=== PATIENT | female | born 1990 | race Caucasian/White ===

== ENCOUNTER → 2017-09-07 | Outpatient (CLI) | payer OTHER ==
[~2017-09-07] MED LIST: ALBU1AER9 INH; EPP3/2 IM; FLVHFA110 INH; LEVO150T9 PO; LISI-729 PO; MAGN400T6 PO; ONDA4TAB7 SL; PROP1TAB PO; RANI150T85 PO; RIBO1TAB4 PO; TOPI100T20 PO; TRAN1TAB47 PO; [UNRECOGNIZED DRUG - OTHER]
--- NOTE | 2017-09-07 12:23 | DIAGNOSTIC IMAGING REPORT ---
C-SPINE ROUTINE 4 OR 5 VIEWS CLINICAL HISTORY: CERVICALGIA COMPARISON STUDY: No previous studies for comparison. FINDINGS: The prevertebral soft tissues are normal. No fractures or subluxations are visualized. The bony neural foramina appear patent bilaterally. No destructive lesions are visualized. IMPRESSION: No significant bony abnormalities. Electronically signed by: Mariano Dias M.D. 09/07/2017 12:22 PM Dictated Date/Time: 09/07/2017 12:21 PM
== END | disposition home or self-care (01) ==
LOC: C.RADBC 11:54
PROVIDERS: ATTEND Physician Assistant
DX: M54.2 Cervicalgia (principal)

== ENCOUNTER 2024-12-09 18:24 | Observation (INO) ==
[2024-12-09 19:40] LABS: Hematocrit (blood only) 41.1 % (37.0-47.0); Hemoglobin 13.6 g/dl (12.0-16.0); Immature Granulocytes # (auto) 0.02 K/uL (0.01-0.20); Immature Granulocytes % (auto) 0.3 %; Mean Corpuscular Hemoglobin 32.5 pg (25.0-34.0); Mean Corpuscular Volume 98.3 fL (80.0-100.0); Platelet Count 233 K/uL (130-400); RDW Standard Deviation 44.2 fL (36.4-46.3); Red Blood Count 4.18 M/uL (4.20-5.40); White Blood Count 7.97 K/ul (4.8-10.8)
[2024-12-09 19:42] LABS: Appearance Urine Clear (Clear); Bacteria Urine Automated 1+ (None Seen); Cast Urine Automated 0-2 /lpf (0-2); Epithelial Cell Urine Auto 0-2 /hpf (0-2); Glucose Urine UA Negative (Negative); RBC Urine Automated 0-2 /hpf (0-2); WBC Urine Automated 0-5 /hpf (0-5)
[2024-12-09 19:56] LABS: Pregnancy Test, Serum Negative (Negative)
[2024-12-09 19:59] LABS: Alanine Aminotransferase 13.0 U/L (7-52); Albumin Globulin Ratio 1.7 (0.9-2); Alkaline Phosphatase 58.0 U/L (34-104); Anion Gap 6.0 (3-11); Bilirubin,Total 0.3 mg/dl (0.2-1.0); Blood Urea Nitrogen 10.0 mg/dl (6-23); Calcium 9.2 mg/dl (8.6-10.3); Carbon Dioxide 29.0 mmol/L (21-32); Chloride 105.0 mmol/L (98-107); Creatinine Clr Calc Pharmacy 108.9 ml/min; Globulin 2.7 gm/dl (2.5-4.0); Glucose 93.0 mg/dl (70-99(Fasting)); Lipase 21.0 U/L (11-82); Potassium 3.8 mmol/L (3.5-5.1); Sodium 140.0 mmol/L (136-145); Total Protein 7.2 gm/dl (6.0-8.3)
--- NOTE | 2024-12-09 20:04 | Emergency Department Note ---
Impression & Plan Peptic ulcer disease, Acute gastritis, Epigastric abdominal pain ED Provider Note NAME: SIERRA WRIGHT AGE: 34 SEX: F : 1990 ARRIVES VIA: Walk-In INFORMANT: Patient, ED PROVIDER(S): Hammad Batista DO CHIEF COMPLAINT: Abdominal pain HPI: The patient is a 34-year-old female who presented to the emergency department for an evaluation of abdominal pain. The patient's had abdominal pain over the last few days. She was seen in our facility recently for similar complaints. That time she had complete workup which revealed signs of gastritis. She was offered admission but at that time did not wish to stay in the hospital. She returns today with worsening pain. She denies having any rectal bleeding. ROS: See above HPI for pertinent positives & negatives. A total of 10 systems reviewed and were otherwise negative. PAST MEDICAL HISTORY: See Below PAST SURGICAL HISTORY: See Below FAMILY HISTORY: See Below SOCIAL HISTORY: See Below HOME MEDICATIONS: See Below ALLERGIES: See Below VITALS: See Below PHYSICAL EXAMINATION: GENERAL: Patient is awake alert in no acute distress patient is resting comfortably and showing no signs of anxiety EYES: The conjunctivae are clear. The pupils are round and reactive. EARS, NOSE, MOUTH AND THROAT: The nose is without any evidence of any deformity. NECK: The neck is nontender and supple. RESPIRATORY: Normal respiratory effort is noted there is no evidence of wheezing rhonchi or rales CARDIOVASCULAR: Regular rate and rhythm noted there no murmurs rubs or gallops normal S1 normal S2. GASTROINTESTINAL: The abdomen is soft. Abdomen is nontender. MUSCULOSKELETAL/EXTREMITIES: There is no evidence of gross deformity full range of motion is noted in the hips and shoulders. SKIN: There is no obvious evidence of any rash. There are no petechiae, pallor or cyanosis noted. NEUROLOGIC: Patient is awake alert and oriented x3 MEDICAL DECISION MAKING: The patient is a 34-year-old female who presented to the emergency department for epigastric pain. The patient's had ongoing symptoms over the course the last few days. She was seen in our facility last evening. The patient was diagnosed with the possibility of ulcer disease. The patient did not wish to stay in the hospital at that time. She left our facility and was started on medications. She returns tonight because of worsening symptoms. I discussed the patient's laboratory and radiographic studies with her. There is no signs of free air on x-ray. She was not feeling much better and was requesting evaluation by the hospitalist for possible inpatient management. I discussed her condition with the on-call [facility] hospitalist. Triage Nursing notes reviewed. Prior medical records reviewed Vital Signs: reviewed and remarkable for no significant abnormalities Differential diagnosis: Etiologies such as appendicitis, diverticulitis, obstruction, inflammatory bowel disease, renal colic, PUD, biliary pathology, pancreatitis, mesenteric ischemia, aortic pathology, infections, genitourinary, UTI, perforated viscus, as well as others were entertained. ER treatment provided: See below Diagnostics interpreted by me: ECG: none Cardiac Monitoring: An order was placed for continuous cardiac monitoring. The monitor shows a rate of 82 bpm with sinus rhythm. Laboratory studies: As stated above and show below. Imaging studies: See below. Radiographic imaging was reviewed by myself Consultation(s): I discussed this case with Dr. Boothe [facility] Past Med/Surg History Problem List (Updated 12/09/24 @ 21:46 by Hammad Batista DO) Epigastric abdominal pain (Acute) Peptic ulcer disease (Acute) Epigastric abdominal pain (Acute) Chest pain (Acute) Gastric ulcer (Acute) Encounter for pre-operative examination Chest pain (Acute) Nausea (Acute) Abdominal pain (Acute) Abdominal pain (Acute) Abdominal pain (Acute) Acute gastritis (Acute) Encounter for pre-operative examination Heavy menstrual bleeding Rectal bleeding Von Willebrand disease (Chronic) Chronic hypertension in (Acute 03/19/14) GERD (gastroesophageal reflux disease) (Acute) Chronic migraine (Chronic) Cervicalgia (Chronic) Medical History Dysmenorrhea Morbid obesity BMI 44.6 Acid reflux CONTROLLED Hypothyroidism History of migraine Von Willebrand disease DX 2/2 RECURRENT EPITAXIS/MENORRHAGIA Seasonal asthma Hypertension Surgical History History of colonoscopy (~01/2020) History of esophagogastroduodenoscopy (EGD) History of total hysterectomy with bilateral salpingo-oophorectomy (BSO) (~05/2018) laparoscopic History of tubal ligation History of wisdom tooth extraction History of total adrenalectomy LEFT (BENIGN TUMOR) History of ankle surgery LEFT/NO HARDWARE History of tonsillectomy Family History Grandmother (Maternal) Family history of colon cancer Mother Family hx colonic polyps Other No family history of adverse response to anesthesia Social History Smoking Status: Never smoker Second Hand Exposure: Yes (father smoked); Do You Dip or Chew Tobacco: No; Hx Alcohol Use: No Hx Substance Use: No Preferred Language: Israeli Communication Ability: Effective Visual Impairment: No 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: No Beliefs That Will Affect Care: None Current Living Situation: Family and Significant Other Current Living Situation Comment: Lives with fiance and 2 kids Feels Safe at Home: Yes Assistive Devices: Glasses Allergies Allergies Allergy/AdvReac Type Severity Reaction Status Date / Time bee venom protein (honey bee) Allergy Severe SHORTNESS Verified 01/15/21 10:21 OF BREATH Penicillins Allergy Severe GASPS AND Verified 01/15/21 10:21 HIVES [id number] Antimigraine Allergy Severe throat Verified 01/15/21 10:21 Agents swelling red dye Allergy Intermediate HIVES Verified 01/15/21 10:21 tramadol Allergy Intermediate GI Verified 01/15/21 10:21 SYMPTOMS, "PASSED OUT" Cephalosporins Allergy Unknown UNKNOWN Verified 01/15/21 10:21 ketorolac AdvReac Mild VOMITING Verified 01/15/21 10:21 Home Meds Home Medications Medication Instructions Recorded Confirmed albuterol sulfate 90 mcg/actuation 2 puffs inhalation Q6H PRN 01/12/18 02/11/23 aerosol inhaler SEASONAL ASTHMA epinephrine 0.3 mg/0.3 mL 0.3 mg IM ONCE PRN Allergic 01/12/18 02/11/23 injection, auto-injector (EpiPen) Reaction levothyroxine 150 mcg capsule 150 mcg PO QAM 01/12/18 02/11/23 omeprazole 20 mg capsule,delayed 40 mg PO DAILY 01/15/21 02/11/23 release Vitamin D 1 cap PO PM 02/11/23 02/11/23 calcium citrate 6 tabs PO .2 TABS @AM,PM,HS 02/11/23 02/11/23 cyanocobalamin (vitamin B-12) 1 tab PO HS 02/11/23 02/11/23 cyanocobalamin (vitamin B-12) 1,000 mcg subcut DIRECTED 02/11/23 02/11/23 1,000 mcg/mL injection solution galcanezumab-gnlm 120 mg/mL 120 mg subcut DIRECTED 02/11/23 02/11/23 subcutaneous pen injector (Emgality Pen) lamotrigine 100 mg tablet 100 mg PO QAM 02/11/23 02/11/23 nystatin 100,000 unit/gram topical 1 applic topical BID 02/11/23 02/11/23 powder (Nystop) ondansetron 8 mg disintegrating 8 mg PO DIRECTED PRN 02/11/23 02/11/23 tablet NAUSEA/VOMITING pediatric multivitamin no.136 1 tab PO AMPM 02/11/23 02/11/23 (Children Multivitamin chewable tablet) zinc 1 tab PO HS 02/11/23 02/11/23 Previous Rx's Medication Instructions Recorded pantoprazole 40 mg tablet,delayed 40 mg PO BID 30 days #60 tabs 12/08/24 release Results & Data (ED) Vital Signs Vital Signs - 24 hr 12/09/24 18:25 12/09/24 20:39 12/09/24 20:49 Temperature 36.6 C Temperature Source Temporal Artery Scan Pulse Rate 94 H 61 Pulse Rate [Apical] 60 Respiratory Rate 18 18 Blood Pressure 154/92 H Blood Pressure [Left Arm] 123/81 Blood Pressure Mean 112 Blood Pressure Mean [Left Arm] 95 Pulse Oximetry 99 98 Oxygen Delivery Method Room Air Sepsis Recent Fever Within 48 Hours No Sepsis New/Unexplained Change in Mental Status N/A Sepsis Action Taken by Nursing No Action Required Home Medications Current Medication List: was personally reviewed by me Laboratory Data Attestation: I reviewed the patient's lab results. 12/09/24 19:26 12/09/24 19:26 Lab Results 12/09/24 Range/Units 19:26 WBC 7.97 (4.8-10.8) K/ul RBC 4.18 L (4.20-5.40) M/uL Hgb 13.6 (12.0-16.0) g/dl Hct 41.1 (37.0-47.0) % MCV 98.3 (80.0-100.0) fL MCH 32.5 (25.0-34.0) pg MCHC 33.1 (32.0-36.0) g/dL RDW Std Deviation 44.2 (36.4-46.3) fL RDW Coeff of Christa 12.2 (11.5-14.5) % Plt Count 233 (130-400) K/uL MPV 11.8 (9.4-12.4) fL Immature Gran % (Auto) 0.3 % Neut % (Auto) 62.9 % Lymph % (Auto) 26.7 % [place] % (Auto) 7.4 % Eos % (Auto) 1.9 % Baso % (Auto) 0.8 % Neut # (Auto) 5.02 (1.40-6.50) K/uL Lymph # (Auto) 2.13 (1.20-3.40) K/uL [place] # (Auto) 0.59 (0.11-0.59) K/uL Eos # (Auto) 0.15 (0.00-0.50) K/uL Baso # (Auto) 0.06 (0.00-0.20) K/uL Immature Gran # (Auto) 0.02 (0.01-0.20) K/uL Sodium 140 (136-145) mmol/L Potassium 3.8 (3.5-5.1) mmol/L Chloride 105 (98-107) mmol/L Carbon Dioxide 29 (21-32) mmol/L Anion Gap 6 (3-11) BUN 10 (6-23) mg/dl Creatinine 0.70 (0.6-1.2) mg/dl Est Cr Clr Drug Dosing 108.9 ml/min eGFR 117.04 BUN/Creatinine Ratio 14.3 (10-20) Glucose 93 (70-99(Fasting)) mg/dl Calcium 9.2 (8.6-10.3) mg/dl Total Bilirubin 0.3 (0.2-1.0) mg/dl AST 15 (13-39) U/L ALT 13 (7-52) U/L Alkaline Phosphatase 58 (34-104) U/L Total Protein 7.2 (6.0-8.3) gm/dl Albumin 4.5 (3.4-5.0) gm/dl Globulin 2.7 (2.5-4.0) gm/dl Albumin/Globulin Ratio 1.7 (0.9-2) Lipase 21 (11-82) U/L HCG, Qual Negative (Negative) Urine Color Yellow Urine Appearance Clear (Clear) Urine pH 5.5 (4.5-7.5) Ur Specific [place] 1.017 (1.000-1.030) Urine Protein Negative (Negative) Urine Glucose (UA) Negative (Negative) Urine Ketones Negative (Negative) Urine Blood Negative (Negative) Urine Nitrite Negative (Negative) Urine Bilirubin Negative (Negative) Urine Urobilinogen Negative (Negative) Ur Leukocyte Esterase Trace H (Negative) Urine WBC (Auto) 0-5 (0-5) /hpf Urine RBC (Auto) 0-2 (0-2) /hpf U Hyaline Cast (Auto) 0-2 (0-2) /lpf U Epithel Cells (Auto) 0-2 (0-2) /hpf Urine Bacteria (Auto) 1+ H (None Seen) Urine Comment Administered Medications Discontinued Medications Sodium Chloride (Nss) 1,000 mls @ 999 mls/hr IV .Q1H1M ONE Stop: 12/09/24 21:04 Last Admin: 12/09/24 20:34 Dose: 999 mls/hr Documented By: KRISTINA Ondansetron HCl (Ondansetron Inj 2 Mg/Ml 2 Ml Vial) 4 mg IV NOW STA Stop: 12/09/24 20:05 Last Admin: 12/09/24 20:34 Dose: 4 mg Documented By: KRISTINA Imaging Data Attestation: I personally reviewed and interpreted this imaging study as follows: My Impression: 1 view chest x-ray was obtained in the emergency department. My interpretation is no free air or definite infiltrate, final report below. Radiologist's Impression: Chest X-Ray 12/09/24 20:00 Exam(s): XR CXR 1 VIEW EXAM: XR Chest, 1 View CLINICAL HISTORY: Reason for exam: epigastric pain. TECHNIQUE: Frontal view of the chest. COMPARISON: No relevant prior studies available. FINDINGS: Lungs: Unremarkable. No consolidation. Pleural space: Unremarkable. No pneumothorax. Heart: Unremarkable. No cardiomegaly. Mediastinum: Unremarkable. Normal mediastinal contour. Bones/joints: Unremarkable. No acute fracture. IMPRESSION: Normal chest x-ray. Electronically signed by: Amador Swain MD 12/09/24 21:29 PM KUB X-Ray 12/09/24 20:00 Exam(s): XR KUB EXAM: XR Abdomen, 1 View CLINICAL HISTORY: Reason for exam: epigastric pain. TECHNIQUE: Frontal supine view of the abdomen/pelvis. COMPARISON: No relevant prior studies available. FINDINGS: Gastrointestinal tract: Unremarkable. No dilation. Right upper quadrant surgical clips likely representing prior cholecystectomy. Bones/joints: Unremarkable. No acute fracture. IMPRESSION: Normal abdominal x-ray. Electronically signed by: Amador Swain MD 12/09/24 21:09 PM Discharge Plan Visit Data Chief Complaint: Abdominal Pain Stated Complaint: STOMACH ULCER PAIN ED Provider: Hammad Batista Discharge Problem: Peptic ulcer disease, Acute gastritis, Epigastric abdominal pain Patient Disposition: Being Evaluated by Hospitalist Condition: Fair Forms Stand Alone Forms: [facility] [place] [employer] Prescriptions Prescriptions: No Action albuterol sulfate 90 mcg/actuation HFA aerosol inhaler 2 puffs INH Q6H PRN (Reason: SEASONAL ASTHMA) epinephrine [EpiPen] 0.3 mg/0.3 mL auto-injector 0.3 mg IM ONCE PRN (Reason: Allergic Reaction) levothyroxine 150 mcg capsule 150 mcg PO QAM ondansetron 8 mg tablet,disintegrating 8 mg PO DIRECTED PRN (Reason: NAUSEA/VOMITING) cyanocobalamin (vitamin B-12) 1,000 mcg/mL solution 1,000 mcg subcut DIRECTED nystatin [Nystop] 100,000 unit/gram powder 1 applic TOPICAL BID lamotrigine 100 mg tablet 100 mg PO QAM Children Multivitamin Tablet,Chewable 1 tab PO AMPM Emgality Pen 120 mg/mL pen injector 120 mg SUBCUT DIRECTED Patient Comments: hasnt started medication yet Vitamin D 1 cap PO PM Rx Instructions: pt didnt give dose calcium citrate 6 tabs PO .2 TABS @AM,PM,HS cyanocobalamin (vitamin B-12) 1 tab PO HS Rx Instructions: pt didnt give dose zinc 1 tab PO HS Rx Instructions: pt didnt give dose omeprazole 20 mg Capsule,Delayed Release(Dr/Ec) 40 mg PO DAILY pantoprazole 40 mg tablet,delayed release (DR/EC) 40 mg PO BID 30 Days Qty: 60 0RF Referrals Referrals: Ezekiel Flores MD [Primary Care Provider] -
[2024-12-09] MEDS: SODIUM CHLORIDE 0.9% 1,000 ML IV ONE (20:34)
[2024-12-09] MEDS: ONDANSETRON INJ 2 MG/ML 2 ML VIAL IV STA ×2 (20:34→21:55)
--- NOTE | 2024-12-09 21:10 | XRay Report ---
Exam(s): XR KUB EXAM: XR Abdomen, 1 View CLINICAL HISTORY: Reason for exam: epigastric pain. TECHNIQUE: Frontal supine view of the abdomen/pelvis. COMPARISON: No relevant prior studies available. FINDINGS: Gastrointestinal tract: Unremarkable. No dilation. Right upper quadrant surgical clips likely representing prior cholecystectomy. Bones/joints: Unremarkable. No acute fracture. IMPRESSION: Normal abdominal x-ray. Electronically signed by: Amador Swain MD 12/09/24 21:09 PM
--- NOTE | 2024-12-09 21:30 | XRay Report ---
Exam(s): XR CXR 1 VIEW EXAM: XR Chest, 1 View CLINICAL HISTORY: Reason for exam: epigastric pain. TECHNIQUE: Frontal view of the chest. COMPARISON: No relevant prior studies available. FINDINGS: Lungs: Unremarkable. No consolidation. Pleural space: Unremarkable. No pneumothorax. Heart: Unremarkable. No cardiomegaly. Mediastinum: Unremarkable. Normal mediastinal contour. Bones/joints: Unremarkable. No acute fracture. IMPRESSION: Normal chest x-ray. Electronically signed by: Amador Swain MD 12/09/24 21:29 PM
[2024-12-09] MEDS: MoRPHine SULFATE 4 MG/ML 1 ML CARP\\VIAL IV STA (21:55)
[2024-12-09] MEDS: FAMOTIDINE 20MG IV PUSH 20 MG/5 ML SYR IV STA (21:55)
[2024-12-09] MEDS: PANTOprazole 40 MG/10 ML SYR IV ONE (21:55)
[2024-12-09] MEDS ORDERED: MoRPHine SULFATE 2 MG/ML CARP IV PRN (22:18)
[2024-12-09] MEDS ORDERED: POLYETHYLENE (MIRALAX) 17 GM PACK PO PRN (22:50)
[2024-12-09] MEDS ORDERED: ACETAMINOPHEN 325 MG TAB PO PRN (22:50)
[2024-12-09] MEDS: PROMETHAZINE 12.5 MG/50.5 ML BAG IV PRN (23:51)
--- NOTE | 2024-12-10 00:18 | History & Physical Report ---
Date of Service December 09, 2024 Assessment & Plan (1) Peptic ulcer disease: Plan: -from 12/08/2024 CT abdomen/pelvis: Mild gastric antral mural thickening, with a small air locule seen within its anterior wall, is suspicious for a small gastric ulcer. -patient with same symptoms as prior -hx of gastric bypass -other considerations would be pancreatitis (negative lipase), worsening perforation (possible but no peritonitis on exam), (HCG negative), int estinal ischemia (unlikely, normal labs), LFTS unremarkable making cholangitis less likely Plan: -GI consult, appreciate recs (consult placed) -continue protonix PO bid -NPO after midnight except meds for likely EGD -oxycodone, morphine for pain control -avoid NSAIDS -patient requested phenergan for nausea/vomiting -check iron, folic acid, B12 -contact centre supervisor consult, appreciate recs (consult placed) -LR maintenance fluids until seen in AM by GI (2) GERD (gastroesophageal reflux disease): Plan: -see above (3) Bipolar 2 disorder: Plan: -continue lamotrigine, lithium -AM lithium level ordered (4) Borderline personality disorder: Plan: -see above Plan I spent a total of 70 minutes in direct patient care, including [id number] time with the patient and/or family, reviewing medical records, ordering and reviewing diagnostic tests, and coordinating care with other healthcare providers. This time includes: history taking, physical examination, medical decision making, counseling, ECG interpretation, imaging interpretation, lab interpretation, orders, and education, excluding time spent in the performance of separately billed services. History of Present Illness Chief Complaint: -abdominal pain Primary Care Provider: Ezekiel Flores MD 34 yo female with pmhx of hypothyroiism, GERD, s/p gastric bypass, borderline personality disorder (on lithium, lamotrigine), hx of anorexia nervosa who presents for abdominal pain. Had visit to ED yesterday, peptic ulcer noted on imaging, went home but was told to come back if pain worsened, and she states the pain is unbearable at this time. In the ED, xr chest/KUB unremarkable, labs unremarkable, admitted to medicine for further workup. Patient seen and examined at bedside. Patient doing poorly at this time. States the pain when she left yesterday was severe and has not gotten any better. Has had nausea, and unable to keep anything down. Has also been passing out at home a few times over the past few days. States nothing makes this better or worse. Pain is sharp, worse with eating, in center of abdomen and down to umbilicus. Does not use ibuprofen, has been using a lot of tums recently. Has hx of gastric bypass. No tobacco use, no alcohol use, no drug use, full code. Allergies Allergy/AdvReac Type Severity Reaction Status Date / Time bee venom protein (honey bee) Allergy Severe SHORTNESS Verified 12/09/24 22:35 OF BREATH Penicillins Allergy Severe GASPS AND Verified 12/09/24 22:35 HIVES [id number] Antimigraine Allergy Severe throat Verified 12/09/24 22:35 Agents swelling red dye Allergy Intermediate HIVES Verified 12/09/24 22:35 tramadol Allergy Intermediate GI Verified 12/09/24 22:35 SYMPTOMS, "PASSED OUT" Cephalosporins Allergy Unknown UNKNOWN Verified 12/09/24 22:35 ketorolac AdvReac Mild VOMITING Verified 12/09/24 22:35 Home Medications Medication Instructions Recorded Confirmed Type epinephrine 0.3 mg/0.3 mL 0.3 mg IM ONCE PRN Allergic 01/12/18 12/09/24 History injection, auto-injector (EpiPen) Reaction levothyroxine 150 mcg capsule 150 mcg PO DAILYBB 01/12/18 12/09/24 History cyanocobalamin (vitamin B-12) 1,000 mcg IM .EVERY 3 MONTHS 02/11/23 12/09/24 History 1,000 mcg/mL injection solution galcanezumab-gnlm 120 mg/mL 120 mg subcut MONTHLY 02/11/23 12/09/24 History subcutaneous pen injector (Emgality Pen) lamotrigine 100 mg tablet 100 mg PO AMHS 02/11/23 12/09/24 History ondansetron 8 mg disintegrating 8 mg PO Q8 PRN NAUSEA/VOMITING 02/11/23 12/09/24 History tablet pediatric multivitamin no.136 1 tab PO AMPM 02/11/23 12/09/24 History (Children Multivitamin chewable tablet) buspirone 10 mg tablet 10 mg PO BID PRN Anxiety 12/09/24 12/09/24 History calcium 200 mg (as 2 tab PO TID 12/09/24 12/09/24 History citrate)-vitamin D3 6.25 mcg (250 unit) tablet (Citracal-D3 Petites) lamotrigine 25 mg tablet 25 mg PO AMHS 12/09/24 12/09/24 History lithium carbonate 450 mg 900 mg PO QDD 12/09/24 12/09/24 History tablet,extended release nystatin 100,000 unit/gram topical 1 applic topical BID PRN fungal 12/09/24 12/09/24 History powder rash omeprazole 40 mg capsule,delayed 40 mg PO AMHS 12/09/24 12/09/24 History release prazosin 1 mg capsule 1 mg PO HS 12/09/24 12/09/24 History prazosin 2 mg capsule 2 mg PO HS 12/09/24 12/09/24 History sucralfate 1 gram tablet 1 g PO ACHS 12/09/24 12/09/24 History Past Med/Surg History Problem List Bipolar 2 disorder Borderline personality disorder Epigastric abdominal pain (Acute) Peptic ulcer disease (Acute) Epigastric abdominal pain (Acute) Chest pain (Acute) Gastric ulcer (Acute) Encounter for pre-operative examination Chest pain (Acute) Nausea (Acute) Abdominal pain (Acute) Abdominal pain (Acute) Abdominal pain (Acute) Acute gastritis (Acute) Encounter for pre-operative examination Heavy menstrual bleeding Rectal bleeding Von Willebrand disease (Chronic) Chronic hypertension in (Acute 03/19/14) GERD (gastroesophageal reflux disease) (Acute) Chronic migraine (Chronic) Cervicalgia (Chronic) Medical History Dysmenorrhea Morbid obesity BMI 44.6 Acid reflux CONTROLLED Hypothyroidism History of migraine Von Willebrand disease DX 2/2 RECURRENT EPITAXIS/MENORRHAGIA Seasonal asthma Hypertension Surgical History History of colonoscopy (~01/2020) History of esophagogastroduodenoscopy (EGD) History of total hysterectomy with bilateral salpingo-oophorectomy (BSO) (~05/2018) laparoscopic History of tubal ligation History of wisdom tooth extraction History of total adrenalectomy LEFT (BENIGN TUMOR) History of ankle surgery LEFT/NO HARDWARE History of tonsillectomy Family History Grandmother (Maternal) Family history of colon cancer Mother Family hx colonic polyps Other No family history of adverse response to anesthesia Social History Smoking Status: Never smoker Second Hand Exposure: No; Do You Dip or Chew Tobacco: No; Tobacco Cessation Education Requested by Patient: No Hx Alcohol Use: No Hx Substance Use: No Preferred Language: Czech Communication Ability: Effective Visual Impairment: No Limitations Continuous Miner Required: No Beliefs That Will Affect Care: None Current Living Situation: Parent and Family Current Living Situation Comment: Lives at home with Mother and her 2 children. Other Information That Helps Us Care for You: No Feels Safe at Home: Yes Safety Concerns: Feels Safe At This Time Assistive Devices: Glasses and Hospital Bed Review of Systems Review of Systems: -negative unless listed above Physical Exam Physical Exam: Gen: A&O 3 NAD HEENT: NCAT, EOMI, not icteric. External ears normal. No rhinorrhea. Moist mucou s membranes. Neck: Supple, full range of motion, no observable masses, No meningeal sign. Lungs: No Respiratory distress. CV: RRR, no edema. Abdomen: mild tenderness to palpation in epigastric and periumbilical regions, no peritonitic signs MSK: No joint swelling, no redness. Skin: No rashes, petechiae, lesions. Normal color per patient. Neuro: Normal Gait, Grossly intact. Psych: Appropriate for situation. Results & Data Results & Data Vital Signs (Past 12 Hours) Vital Signs Temp Pulse Pulse Resp BP BP Pulse Ox 12/09/24 22:00 64 17 135/80 97 12/09/24 21:30 61 15 127/79 97 12/09/24 21:00 71 20 122/81 96 12/09/24 20:49 61 12/09/24 20:39 60 18 123/81 98 12/09/24 18:25 36.6 C 94 H 18 154/92 H 99 O2 Del Method 12/09/24 22:00 12/09/24 21:30 12/09/24 21:00 12/09/24 20:49 12/09/24 20:39 Room Air 12/09/24 18:25 Laboratory Results -personally reviewed, Hgb stable, no leukocytosis, creatinine at baseline Medications Administered Promethazine HCl (Phenergan) 12.5 mg in 50.5 mls @ 202 mls/hr IV Q6H PRN PRN Reason: Nausea And Vomiting Stop: 01/08/25 22:17 Last Infusion: 12/10/24 00:06 Dose: Infused Documented By: JUAN CARLOS Admin: 12/09/24 23:51 Dose: 202 mls/hr Documented By: JUAN CARLOS
[2024-12-10 00:56] LABS: Iron 50.0 mcg/dl (35-150); Total Iron Binding Cap Calc 354.0 mcg/dl (250-450); Transferrin 253.0 mg/dl (200-360); Transferrin (FE) Percent Satur 14.0 % (15-50)
[2024-12-10] MEDS: LACTATED RINGER'S 1,000 ML IV SCH (01:10)
[2024-12-10 01:33] LABS: Folate (Folic Acid),Ser orPlas > 22.30 ng/ml (>5.38)
[2024-12-10 01:34] LABS: Vitamin B12 376 pg/ml (180-914)
[2024-12-10] MEDS: LEVOTHYROXINE SODIUM 150 MCG TABLET PO SCH (06:06)
--- NOTE | 2024-12-10 07:29 | Hospitalist Progress Note ---
Date of Service December 10, 2024 Assessment & Plan (1) Peptic ulcer disease: (2) GERD (gastroesophageal reflux disease): (3) Bipolar 2 disorder: (4) Borderline personality disorder: Plan 34 yo female with pmhx of hypothyroiism, GERD, s/p gastric bypass, borderline personality disorder (on lithium, lamotrigine), hx of anorexia nervosa who presents for abdominal pain -from 12/08/2024 CT abdomen/pelvis: Mild gastric antral mural thickening, with a small air locule seen within its anterior wall, is suspicious for a small gastric ulcer. 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, appreciate recs (consult placed) -LR maintenance fluids until seen in AM by GI (2) GERD (gastroesophageal reflux disease): Plan: -see above (3) Bipolar 2 disorder: Plan: -continue lamotrigine, lithium -AM lithium level ordered (4) Borderline personality disorder: Plan: -see above Admission and Anticipated Discharge Date Admission Date: December 09, 2024 Results & Data Results & Data Vital Signs (Past 12 Hours) Vital Signs Temp Pulse Pulse Pulse Resp BP BP 12/09/24 22:45 36.9 C 66 16 143/85 H 12/09/24 22:45 36.9 C 66 16 143/85 H 12/09/24 22:00 64 17 135/80 12/09/24 21:30 61 15 127/79 12/09/24 21:00 71 20 122/81 12/09/24 20:49 61 12/09/24 20:39 60 18 123/81 Pulse Ox O2 Del Method 12/09/24 22:45 99 Room Air 12/09/24 22:45 99 Room Air 12/09/24 22:00 97 12/09/24 21:30 97 12/09/24 21:00 96 12/09/24 20:49 12/09/24 20:39 98 Room Air
[2024-12-10] MEDS: lamoTRIgine 100 MG TAB PO SCH (07:43)
[2024-12-10] MEDS: ACETAMINOPHEN 1,000 MG/100 ML VIAL IV STA (09:15)
[2024-12-10] MEDS: ONDANSETRON INJ 2 MG/ML 2 ML VIAL IV PRN (09:29)
[2024-12-10 09:40] LABS: Hematocrit (blood only) 34.4 % (37.0-47.0); Hemoglobin 11.5 g/dl (12.0-16.0); Mean Corpuscular Hemoglobin 32.9 pg (25.0-34.0); Mean Corpuscular Volume 98.3 fL (80.0-100.0); Platelet Count 191 K/uL (130-400); RDW Standard Deviation 44.5 fL (36.4-46.3); Red Blood Count 3.50 M/uL (4.20-5.40); White Blood Count 4.93 K/ul (4.8-10.8)
[2024-12-10 10:06] LABS: Alanine Aminotransferase 11.0 U/L (7-52); Albumin Globulin Ratio 2.1 (0.9-2); Alkaline Phosphatase 41.0 U/L (34-104); Anion Gap 5.0 (3-11); Bilirubin,Total 0.6 mg/dl (0.2-1.0); Blood Urea Nitrogen 6.0 mg/dl (6-23); Calcium 8.6 mg/dl (8.6-10.3); Carbon Dioxide 31.0 mmol/L (21-32); Chloride 105.0 mmol/L (98-107); Creatinine Clr Calc Pharmacy 124.5 ml/min; Globulin 1.9 gm/dl (2.5-4.0); Glucose 88.0 mg/dl (70-99(Fasting)); Potassium 3.4 mmol/L (3.5-5.1); Sodium 141.0 mmol/L (136-145); Total Protein 5.9 gm/dl (6.0-8.3)
--- NOTE | 2024-12-10 10:47 | Gastrointestinal Consultation ---
Date of Consultation December 10, 2024 Assessment & Plan (1) Epigastric abdominal pain: 34 year old female with history of hypothyroidism, GERD, s/p gastric bypass, borderline personality disorder (on lithium, lamotrigine), anorexia nervosa and others below admitted through the ED w/ abd pain, CT w/ mild gastric antral mural thickening NPO EGD evaluation Continue IV PPI Trend H&H Monitor/document output Scheduled antiemetics I spent a total of 60 minutes on the date of service in review of patient's re cord, and previously obtained information in person and appropriate medical visit, discussion and education of plan, with patient and/or caregiver, placing orders for tests/referral/procedures as medically necessary and documentation of pertinent clinical information in patient's medical records for their visit today. Supervising Physician Co-Signing Physician Notes I saw and examined this patient with our nurse practitioner and agree with her assessment and plan. Patient with 3-week history of upper abdominal pain. Seen in ER twice over the last several days. CT scan questions of possible antral ulcer. Fortunately patient's status post gastric bypass and antrum would not be accessible endoscopically which standard instruments. Pancreatic or biliary pain need to exclude anastomotic stricture at her gastrojejunal anastomosis. Will proceed with standard endoscopy. History of Present Illness Reason for Consultation: PUD Requesting Physician: Rosi Ríos MD Attending Physician: Rosi Ríos MD History of Present Illness 34 year old female with history of hypothyroidism, GERD, s/p gastric bypass, borderline personality disorder (on lithium, lamotrigine), anorexia nervosa and others below admitted through the ED w/ abd pain, abnormal imaging. Suggests she developed upper abd discomfort about 3 weeks ago now. Started w/ twice daily PPI, pepcid and carafate. No improvement. Associated nausea, decreased appetite. inability to advance diet. No NSAIDs No ETOH No tobacco CTAP 2024: Mild gastric antral mural thickening, with a small air locule seen within its anterior wall, is suspicious for a small gastric ulcer. Allergies Allergy/AdvReac Type Severity Reaction Status Date / Time bee venom protein (honey bee) Allergy Severe SHORTNESS Verified 12/09/24 22:35 OF BREATH Penicillins Allergy Severe GASPS AND Verified 12/09/24 22:35 HIVES [id number] Antimigraine Allergy Severe throat Verified 12/09/24 22:35 Agents swelling red dye Allergy Intermediate HIVES Verified 12/09/24 22:35 tramadol Allergy Intermediate GI Verified 12/09/24 22:35 SYMPTOMS, "PASSED OUT" Cephalosporins Allergy Unknown UNKNOWN Verified 12/09/24 22:35 ketorolac AdvReac Mild VOMITING Verified 12/09/24 22:35 Home Medications Medication Instructions Recorded Confirmed Type epinephrine 0.3 mg/0.3 mL 0.3 mg IM ONCE PRN Allergic 01/12/18 12/09/24 History injection, auto-injector (EpiPen) Reaction levothyroxine 150 mcg capsule 150 mcg PO DAILYBB 01/12/18 12/09/24 History cyanocobalamin (vitamin B-12) 1,000 mcg IM .EVERY 3 MONTHS 02/11/23 12/09/24 History 1,000 mcg/mL injection solution galcanezumab-gnlm 120 mg/mL 120 mg subcut MONTHLY 02/11/23 12/09/24 History subcutaneous pen injector (Emgality Pen) lamotrigine 100 mg tablet 100 mg PO AMHS 02/11/23 12/09/24 History ondansetron 8 mg disintegrating 8 mg PO Q8 PRN NAUSEA/VOMITING 02/11/23 12/09/24 History tablet pediatric multivitamin no.136 1 tab PO AMPM 02/11/23 12/09/24 History (Children Multivitamin chewable tablet) buspirone 10 mg tablet 10 mg PO BID PRN Anxiety 12/09/24 12/09/24 History calcium 200 mg (as 2 tab PO TID 12/09/24 12/09/24 History citrate)-vitamin D3 6.25 mcg (250 unit) tablet (Citracal-D3 Petites) lamotrigine 25 mg tablet 25 mg PO AMHS 12/09/24 12/09/24 History lithium carbonate 450 mg 900 mg PO QDD 12/09/24 12/09/24 History tablet,extended release nystatin 100,000 unit/gram topical 1 applic topical BID PRN fungal 12/09/24 12/09/24 History powder rash omeprazole 40 mg capsule,delayed 40 mg PO AMHS 12/09/24 12/09/24 History release prazosin 1 mg capsule 1 mg PO HS 12/09/24 12/09/24 History prazosin 2 mg capsule 2 mg PO HS 12/09/24 12/09/24 History sucralfate 1 gram tablet 1 g PO ACHS 12/09/24 12/09/24 History Patient History Medical History Dysmenorrhea Morbid obesity BMI 44.6 Acid reflux CONTROLLED Hypothyroidism History of migraine Von Willebrand disease DX 2/2 RECURRENT EPITAXIS/MENORRHAGIA Seasonal asthma Hypertension Surgical History History of colonoscopy (~01/2020) History of esophagogastroduodenoscopy (EGD) History of total hysterectomy with bilateral salpingo-oophorectomy (BSO) (~05/2018) laparoscopic History of tubal ligation History of wisdom tooth extraction History of total adrenalectomy LEFT (BENIGN TUMOR) History of ankle surgery LEFT/NO HARDWARE History of tonsillectomy Family History Grandmother (Maternal) Family history of colon cancer Mother Family hx colonic polyps Other No family history of adverse response to anesthesia Social History Smoking Status: Never smoker Second Hand Exposure: No; Do You Dip or Chew Tobacco: No; Tobacco Cessation Education Requested by Patient: No Hx Alcohol Use: No Hx Substance Use: No Preferred Language: Argentine Communication Ability: Effective Visual Impairment: No Limitations Patient Experience Coordinator Required: No Beliefs That Will Affect Care: None Current Living Situation: Parent and Family Current Living Situation Comment: Lives at home with Mother and her 2 children. Other Information That Helps Us Care for You: No Feels Safe at Home: Yes Safety Concerns: Feels Safe At This Time Assistive Devices: None Review of Systems Review of Systems: All other findings negative except as noted in HPI. Physical Exam Constitutional: WD/WN, vitals as above Respiratory: normal respiratory effort Cardiovascular: Rate/Rhythm: regular rate Gastrointestinal (Abdomen): normal bowel sounds, soft, nontender, no hepatosplenomegaly Skin: no rashes, warm and dry Results & Data Vital Signs (Past 12 Hours) Vital Signs Temp Pulse Resp BP Pulse Ox O2 Del Method 12/10/24 07:57 97.9 F 76 18 135/85 100 Room Air 12/10/24 07:54 Room Air 12/09/24 22:45 98.4 F 66 16 143/85 H 99 Room Air 12/09/24 22:45 98.4 F 66 16 143/85 H 99 Room Air Laboratory Results 12/10/24 12/09/24 12/09/24 Range/Units 08:54 19:26 19:26 WBC 4.93 (4.8-10.8) K/ul RBC 3.50 L (4.20-5.40) M/uL Hgb 11.5 L (12.0-16.0) g/dl Hct 34.4 L (37.0-47.0) % MCV 98.3 (80.0-100.0) fL MCH 32.9 (25.0-34.0) pg MCHC 33.4 (32.0-36.0) g/dL RDW Std Deviation 44.5 (36.4-46.3) fL RDW Coeff of Christa 12.4 (11.5-14.5) % Plt Count 191 (130-400) K/uL MPV 12.2 (9.4-12.4) fL Immature Gran % (Auto) % Neut % (Auto) % Lymph % (Auto) % Moody % (Auto) % Eos % (Auto) % Baso % (Auto) % Neut # (Auto) (1.40-6.50) K/uL Lymph # (Auto) (1.20-3.40) K/uL [place] # (Auto) (0.11-0.59) K/uL Eos # (Auto) (0.00-0.50) K/uL Baso # (Auto) (0.00-0.20) K/uL Immature Gran # (Auto) (0.01-0.20) K/uL Sodium 141 (136-145) mmol/L Potassium 3.4 L (3.5-5.1) mmol/L Chloride 105 (98-107) mmol/L Carbon Dioxide 31 (21-32) mmol/L Anion Gap 5 (3-11) BUN 6 (6-23) mg/dl Creatinine 0.60 (0.6-1.2) mg/dl Est Cr Clr Drug Dosing 124.5 ml/min eGFR 121.47 BUN/Creatinine Ratio 10.0 (10-20) Glucose 88 (70-99(Fasting)) mg/dl Calcium 8.6 (8.6-10.3) mg/dl Iron (35-150) mcg/dl TIBC (250-450) mcg/dl Transferrin Cancelled (200-360) mg/dl Transferrin % Sat Cancelled 14 L (15-50) % Ferritin 60.3 (8-388) ng/ml Total Bilirubin 0.6 0.3 (0.2-1.0) mg/dl AST 12 L 15 (13-39) U/L ALT 11 13 (7-52) U/L Alkaline Phosphatase 41 58 (34-104) U/L Total Protein 5.9 L 7.2 (6.0-8.3) gm/dl Albumin 4.0 4.5 (3.4-5.0) gm/dl Globulin 1.9 L 2.7 (2.5-4.0) gm/dl Albumin/Globulin Ratio 2.1 H 1.7 (0.9-2) Lipase 21 (11-82) U/L Vitamin B12 376 (180-914) pg/ml Folate > 22.30 (>5.38) ng/ml HCG, Qual Negative (Negative) Urine Color Yellow Urine Appearance Clear (Clear) Urine pH 5.5 (4.5-7.5) Ur Specific [place] 1.017 (1.000-1.030) Urine Protein Negative (Negative) Urine Glucose (UA) Negative (Negative) Urine Ketones Negative (Negative) Urine Blood Negative (Negative) Urine Nitrite Negative (Negative) Urine Bilirubin Negative (Negative) Urine Urobilinogen Negative (Negative) Ur Leukocyte Esterase Trace H (Negative) Urine WBC (Auto) 0-5 (0-5) /hpf Urine RBC (Auto) 0-2 (0-2) /hpf U Hyaline Cast (Auto) 0-2 (0-2) /lpf U Epithel Cells (Auto) 0-2 (0-2) /hpf Urine Bacteria (Auto) 1+ H (None Seen) Urine Comment [place] 0.5 L (0.6-1.2) mmol/L 12/09/24 12/09/24 12/09/24 Range/Units 19:26 19:26 19:26 WBC 7.97 (4.8-10.8) K/ul RBC 4.18 L (4.20-5.40) M/uL Hgb 13.6 (12.0-16.0) g/dl Hct 41.1 (37.0-47.0) % MCV 98.3 (80.0-100.0) fL MCH 32.5 (25.0-34.0) pg MCHC 33.1 (32.0-36.0) g/dL RDW Std Deviation 44.2 (36.4-46.3) fL RDW Coeff of Christa 12.2 (11.5-14.5) % Plt Count 233 (130-400) K/uL MPV 11.8 (9.4-12.4) fL Immature Gran % (Auto) 0.3 % Neut % (Auto) 62.9 % Lymph % (Auto) 26.7 % Moody % (Auto) 7.4 % Eos % (Auto) 1.9 % Baso % (Auto) 0.8 % Neut # (Auto) 5.02 (1.40-6.50) K/uL Lymph # (Auto) 2.13 (1.20-3.40) K/uL Moody # (Auto) 0.59 (0.11-0.59) K/uL Eos # (Auto) 0.15 (0.00-0.50) K/uL Baso # (Auto) 0.06 (0.00-0.20) K/uL Immature Gran # (Auto) 0.02 (0.01-0.20) K/uL Sodium 140 (136-145) mmol/L Potassium 3.8 (3.5-5.1) mmol/L Chloride 105 (98-107) mmol/L Carbon Dioxide 29 (21-32) mmol/L Anion Gap 6 (3-11) BUN 10 (6-23) mg/dl Creatinine 0.70 (0.6-1.2) mg/dl Est Cr Clr Drug Dosing 108.9 ml/min eGFR 117.04 BUN/Creatinine Ratio 14.3 (10-20) Glucose 93 (70-99(Fasting)) mg/dl Calcium 9.2 (8.6-10.3) mg/dl Iron Cancelled 50 (35-150) mcg/dl TIBC Cancelled 354 (250-450) mcg/dl Transferrin 253 (200-360) mg/dl Transferrin % Sat (15-50) % Ferritin (8-388) ng/ml Total Bilirubin (0.2-1.0) mg/dl AST (13-39) U/L ALT (7-52) U/L Alkaline Phosphatase (34-104) U/L Total Protein (6.0-8.3) gm/dl Albumin (3.4-5.0) gm/dl Globulin (2.5-4.0) gm/dl Albumin/Globulin Ratio (0.9-2) Lipase (11-82) U/L Vitamin B12 (180-914) pg/ml Folate (>5.38) ng/ml HCG, Qual (Negative) Urine Color Urine Appearance (Clear) Urine pH (4.5-7.5) Ur Specific [place] (1.000-1.030) Urine Protein (Negative) Urine Glucose (UA) (Negative) Urine Ketones (Negative) Urine Blood (Negative) Urine Nitrite (Negative) Urine Bilirubin (Negative) Urine Urobilinogen (Negative) Ur Leukocyte Esterase (Negative) Urine WBC (Auto) (0-5) /hpf Urine RBC (Auto) (0-2) /hpf U Hyaline Cast (Auto) (0-2) /lpf U Epithel Cells (Auto) (0-2) /hpf Urine Bacteria (Auto) (None Seen) Urine Comment [place] (0.6-1.2) mmol/L PG Care Time/CCT Total # of Minutes Spent Total Time Spent with Patient: Total time spent is greater than 50% in coordination of care (as documented) at patient's floor/unit and/or counseling patient: Coding Level of Care Code 85874 IN/OBS CONSULT LVL 4,60M Diagnoses Epigastric abdominal pain R10.13
[2024-12-10 13:25] VITALS: TEMP 98.1
--- NOTE | 2024-12-10 13:46 | Anesthesiology Consultation ---
Date of Service December 10, 2024 Assessment & Plan Chart Review Chart Review: Acceptable Risk for Surgery and Patient NOT seen in Pre Admission Testing Consults Requested none ASA ASA3 Proposed Anesthesia Anesthesia Type: MAC History Surgery Operation Date: 12/10/24 17:00 Proposed Procedures p Esophagogastroduodenoscopy Dr. Toni Muñoz MD Height/Weight Height: 5 ft 4 in Weight: 69.7 kg Allergies Allergy/AdvReac Type Severity Reaction Status Date / Time bee venom protein (honey bee) Allergy Severe SHORTNESS Verified 12/10/24 13:17 OF BREATH Penicillins Allergy Severe GASPS AND Verified 12/10/24 13:17 HIVES [id number] Antimigraine Allergy Severe throat Verified 12/10/24 13:17 Agents swelling red dye Allergy Intermediate HIVES Verified 12/10/24 13:17 tramadol Allergy Intermediate GI Verified 12/10/24 13:17 SYMPTOMS, "PASSED OUT" Cephalosporins Allergy Unknown UNKNOWN Verified 12/10/24 13:17 ketorolac AdvReac Mild VOMITING Verified 12/10/24 13:17 Medications Home Medications Medication Instructions Recorded Confirmed Last Taken epinephrine 0.3 mg/0.3 mL 0.3 mg IM ONCE PRN Allergic 01/12/18 12/09/24 Unknown injection, auto-injector (EpiPen) Reaction levothyroxine 150 mcg capsule 150 mcg PO DAILYBB 01/12/18 12/09/24 12/09/24 cyanocobalamin (vitamin B-12) 1,000 mcg IM .EVERY 3 MONTHS 02/11/23 12/09/24 11/12/22 1,000 mcg/mL injection solution galcanezumab-gnlm 120 mg/mL 120 mg subcut MONTHLY 02/11/23 12/09/24 11/12/24 subcutaneous pen injector (Emgality Pen) lamotrigine 100 mg tablet 100 mg PO AMHS 02/11/23 12/09/24 12/09/24 ondansetron 8 mg disintegrating 8 mg PO Q8 PRN NAUSEA/VOMITING 02/11/23 12/09/24 Unknown tablet pediatric multivitamin no.136 1 tab PO AMPM 02/11/23 12/09/24 12/09/24 (Children Multivitamin chewable tablet) buspirone 10 mg tablet 10 mg PO BID PRN Anxiety 12/09/24 12/09/24 Unknown calcium 200 mg (as 2 tab PO TID 12/09/24 12/09/24 12/09/24 citrate)-vitamin D3 6.25 mcg (250 unit) tablet (Citracal-D3 Petites) lamotrigine 25 mg tablet 25 mg PO AMHS 12/09/24 12/09/24 12/09/24 lithium carbonate 450 mg 900 mg PO QDD 12/09/24 12/09/24 12/09/24 tablet,extended release nystatin 100,000 unit/gram topical 1 applic topical BID PRN fungal 12/09/24 12/09/24 Unknown powder rash omeprazole 40 mg capsule,delayed 40 mg PO AMHS 12/09/24 12/09/24 12/09/24 release prazosin 1 mg capsule 1 mg PO HS 12/09/24 12/09/24 12/09/24 prazosin 2 mg capsule 2 mg PO HS 12/09/24 12/09/24 12/09/24 sucralfate 1 gram tablet 1 g PO [facility] 12/09/24 12/09/24 12/09/24 Active Medications Generic Name Dose Route Start Last Admin Trade Name Freq PRN Reason Stop Dose Admin Promethazine HCl 12.5 mg in 50.5 mls @ 202 mls/hr 12/09/24 22:18 12/10/24 12:46 Phenergan IV 01/08/25 22:17 Infused Q6H PRN Infusion Nausea And Vomiting Lamotrigine 100 mg 12/10/24 09:00 12/10/24 07:43 Lamotrigine 100 Mg Tab PO 01/09/25 08:59 100 mg QAM LAURA Administration Protocol Levothyroxine Sodium 150 mcg 12/10/24 06:30 12/10/24 06:06 Levothyroxine Sodium 150 Mcg Tablet PO 01/09/25 06:29 150 mcg DAILYBB LAURA Administration Ondansetron HCl 4 mg 12/09/24 22:50 12/10/24 09:29 Ondansetron Inj 2 Mg/Ml 2 Ml Vial IV 01/08/25 22:49 4 mg Q6H PRN Administration Nausea Pantoprazole Sodium 40 mg 12/10/24 09:00 12/10/24 07:43 Pantoprazole 40 Mg Tab PO 01/09/25 08:59 40 mg BID LAURA Administration NPO Date Last Intake of Fluids: 12/10/24 Time Last Intake of Fluids: 09:00 Date Last Intake of Solids: 12/09/24 Time Last Intake of Solids: 18:00 Past Medical History Medical History Dysmenorrhea Morbid obesity BMI 44.6 Acid reflux CONTROLLED Hypothyroidism History of migraine Von Willebrand disease DX 2/2 RECURRENT EPITAXIS/MENORRHAGIA Seasonal asthma Hypertension Exercise / Class Metabolic Activity II 4-5 Yardwork/Stairs/Walk up hill Past Family History Family History Grandmother (Maternal) Family history of colon cancer Mother Family hx colonic polyps Other No family history of adverse response to anesthesia Past Surgical History Surgical History History of colonoscopy (~01/2020) History of esophagogastroduodenoscopy (EGD) History of total hysterectomy with bilateral salpingo-oophorectomy (BSO) (~05/2018) laparoscopic History of tubal ligation History of wisdom tooth extraction History of total adrenalectomy LEFT (BENIGN TUMOR) History of ankle surgery LEFT/NO HARDWARE History of tonsillectomy Past Anesthesia History No Hx of Anesthesia Complications and No Family Hx of Anesthesia Complications History of PONV No Hx of PONV and No Hx of Motion Sickness Social History Smoking Status: Never smoker Do You Dip or Chew Tobacco: No Hx Alcohol Use: No Alcohol type: beer alcohol intake frequency: other Hx Substance Use: No substance use type: does not use Physical Exam Vital Signs Last Vital Signs Temp 36.7 C 12/10/24 13:18 Pulse 70 12/10/24 13:18 Resp 17 12/10/24 13:18 BP 134/78 12/10/24 13:18 Pulse Ox 99 12/10/24 13:18 O2 Del Method Room Air 12/10/24 13:18 Testing Laboratory Results 12/10/24 08:54 12/10/24 08:54 Urine Color Yellow 12/09/24 19:26 Urine Appearance Clear (Clear) 12/09/24 19:26 Urine pH 5.5 (4.5-7.5) 12/09/24 19:26 Ur Specific [place] 1.017 (1.000-1.030) 12/09/24 19:26 Urine Protein Negative (Negative) 12/09/24 19:26 Urine Glucose (UA) Negative (Negative) 12/09/24 19:26 Urine Ketones Negative (Negative) 12/09/24 19:26 Urine Nitrite Negative (Negative) 12/09/24 19:26 Ur Leukocyte Esterase Trace (Negative) H 12/09/24 19:26 Urine WBC (Auto) 0-5 /hpf (0-5) 12/09/24 19:26 Urine RBC (Auto) 0-2 /hpf (0-2) 12/09/24 19:26 U Hyaline Cast (Auto) 0-2 /lpf (0-2) 12/09/24 19:26 U Epithel Cells (Auto) 0-2 /hpf (0-2) 12/09/24 19:26 Urine Bacteria (Auto) 1+ (None Seen) H 12/09/24 19:26 Electrocardiogram Date: 12/08/24 Findings: + NSR @ (@ 68) Chest X-Ray Date: 12/09/24 Findings: + NAD
[2024-12-10] MEDS ORDERED: ATROPINE SULFATE 0.1 MG/ML 10ML SYR IV PRN (13:51)
--- NOTE | 2024-12-10 14:06 | GI REPORT ---
[facility] Patient: SIERRA WRIGHT : 1990 Sex at : Female Age: 34 Years Procedure: Upper GI endoscopy Date: 12/10/2024 Attending Physician: Dionte Muñoz MD Referring MD: Rosi Ríos Md Indications: - Epigastric abdominal pain Medications: - Monitored Anesthesia Care Complications: - No immediate complications. Procedure: - Prior to the procedure, a History and Physical was performed, and patient medications and allergies were reviewed. The patient's tolerance of previous anesthesia was also reviewed. The risks and benefits of the procedure and the sedation options and risks were discussed with the patient. All questions were answered, and informed consent was obtained. [Anticoagulant Agents] [Days Prior to Procedure]. [ASA Grade]. After reviewing the risks and benefits, the patient was deemed in satisfactory condition to undergo the procedure. - The egd scope was introduced through the mouth and advanced to the second part of the duodenum. - The upper GI endoscopy was accomplished without difficulty. - The patient tolerated the procedure well. Findings: - The examined esophagus was normal. - Evidence of a gastric bypass and gastrojejunostomy were found in the gastric body. This was characterized by healthy appearing mucosa. - The examined jejunum was normal. Impression: - Normal esophagus. - A gastric bypass and gastrojejunostomy was found, characterized by healthy appearing mucosa. - Normal examined jejunum. - No specimens collected. Recommendation: - Resume previous diet. - Patient has a contact number available for emergencies. The signs and symptoms of potential delayed complications were discussed with the patient. Return to normal activities tomorrow. Written discharge instructions were provided to the patient. Procedure Code(s): - 26360, Esophagogastroduodenoscopy, flexible, transoral; diagnostic, including collection of specimen(s) by brushing or washing, when performed (separate procedure) Diagnosis Code(s): - R10.13, Epigastric pain - Z98.84, Bariatric surgery status - Z98.0, Intestinal bypass and anastomosis status CPT(R) - 202 copyright [employer]. All Rights Reserved. The CPT codes, CCI edits and ICD codes generated are intended as suggestions and were generated based on input data. These codes are preliminary and upon farmworkers review may be revised to meet current compliance and payer requirements. The provider is responsible for the final determination of appropriate codes, and modifiers. Dionte Muñoz MD This document has been electronically signed. Note Initiated:12/10/2024 Note Completed:12/10/2024 2:05 PM \\[id number]
[2024-12-10 14:26] VITALS: RESP 16
[2024-12-10 14:27] VITALS: PULSE 58
--- NOTE | 2024-12-10 14:35 | Anesthesiology Progress Note ---
Date of Service December 10, 2024 Anesthesia Post Procedure Vital Signs Vital Signs: Temp Pulse Pulse Pulse Resp BP BP 12/10/24 14:24 58 L 16 120/72 12/10/24 14:09 72 16 122/88 12/10/24 13:18 36.7 C 70 17 134/78 12/10/24 07:57 36.6 C 76 18 135/85 12/10/24 07:54 12/09/24 22:45 36.9 C 66 16 143/85 H 12/09/24 22:45 36.9 C 66 16 143/85 H 12/09/24 22:00 64 17 135/80 12/09/24 21:30 61 15 127/79 12/09/24 21:00 71 20 122/81 12/09/24 20:49 61 12/09/24 20:39 60 18 123/81 12/09/24 18:25 36.6 C 94 H 18 154/92 H Pulse Ox O2 Del Method 12/10/24 14:24 98 Room Air 12/10/24 14:09 100 Room Air 12/10/24 13:18 99 Room Air 12/10/24 07:57 100 Room Air 12/10/24 07:54 Room Air 12/09/24 22:45 99 Room Air 12/09/24 22:45 99 Room Air 12/09/24 22:00 97 12/09/24 21:30 97 12/09/24 21:00 96 12/09/24 20:49 12/09/24 20:39 98 Room Air 12/09/24 18:25 99 Pain Intensity Bilateral Abdomen: Pain Intensity: 4 Transfer of Care Handoff Completed per policy Notes Mental Status: alert / awake / arousable Patient Amnestic to Procedure: Yes Nausea / Vomiting: adequately controlled Pain: adequately controlled Airway Patency, RR, SpO2: stable & adequate BP & HR: stable & adequate Hydration State: stable & adequate Anesthetic Complications: no major complications apparent
[2024-12-10 14:39] VITALS: BP 117/81; O2SAT 99
[2024-12-10] MEDS: LIDOCAINE 2% 2 ML VIAL/AMP(20MG/ML) INFIL ONE (15:22)
[2024-12-10] MEDS: SODIUM CHLORIDE 0.9% 500 ML IV SCH (15:22)
[2024-12-10] MEDS: PROPOFOL IV EMULSION 10 MG/ML 20 ML VIAL IV ONE (15:22)
--- NOTE | 2024-12-10 15:50 | Discharge Summary ---
Discharge Summary Date of Service December 10, 2024 Principal Dx & Hospital Course #1 = Principal Diagnosis (1) Peptic ulcer disease: (2) GERD (gastroesophageal reflux disease): (3) Bipolar 2 disorder: (4) Borderline personality disorder: Plan Ms. Sultana is a 34 yo female with pmhx of hypothyroidism, GERD, s/p gastric bypass, borderline personality disorder (on lithium, lamotrigine), hx of anorexia nervosa who presents for abdominal pain and CT from 12/08/2024 CT abdomen/pelvis: Mild gastric antral mural thickening, with a small air locule seen within its anterior wall that was suspicious for gastric ulcer. #Epigastric pain, c/f ulcer #s/p gastric bypass #GERD -patient with same symptoms as prior with heartburn/ulcer disease over 15 years ago -hx of gastric bypass labs remain stable GI consulted: EGD performed: normal EGD and stable findings of prior gastric bypass continue home ppi and sulcralfate resume diet follow up op GI #Bipolar 2 disorder: -continue lamotrigine, lithium Notes For Next Care Provider Impression: - Normal esophagus. - A gastric bypass and gastrojejunostomy was found, characterized by healthy appearing mucosa. - Normal examined jejunum. - No specimens collected. Recommendation: - Resume previous diet. - Patient has a contact number available for emergencies. The signs and symptoms of potential delayed complications were discussed with the patient. Return to normal activities tomorrow. Written discharge instructions were provided to the patient. Procedure Code(s): - 70953, Esophagogastroduodenoscopy, flexible, transoral; diagnostic, including collection of specimen(s) by brushing or washing, when performed (separate procedure) Diagnosis Code(s): - R10.13, Epigastric pain - Z98.84, Bariatric surgery status - Z98.0, Intestinal bypass and anastomosis status Medication Changes From Visit none Admission HPI Per Admitting Provider 34 yo female with pmhx of hypothyroiism, GERD, s/p gastric bypass, borderline personality disorder (on lithium, lamotrigine), hx of anorexia nervosa who presents for abdominal pain. Had visit to ED yesterday, peptic ulcer noted on imaging, went home but was told to come back if pain worsened, and she states the pain is unbearable at this time. In the ED, xr chest/KUB unremarkable, labs unremarkable, admitted to medicine for further workup. Patient seen and examined at bedside. Patient doing poorly at this time. States the pain when she left yesterday was severe and has not gotten any better. Has had nausea, and unable to keep anything down. Has also been passing out at home a few times over the past few days. States nothing makes this better or worse. Pain is sharp, worse with eating, in center of abdomen and down to umbilicus. Does not use ibuprofen, has been using a lot of tums recently. Has hx of gastric bypass. No tobacco use, no alcohol use, no drug use, full code. Admission Exam Per Admitting Provider Gen: A&O 3 NAD HEENT: NCAT, EOMI, not icteric. External ears normal. No rhinorrhea. Moist mucous membranes. Neck: Supple, full range of motion, no observable masses, No meningeal sign. Lungs: No Respiratory distress. CV: RRR, no edema. Abdomen: mild tenderness to palpation in epigastric and periumbilical regions, no peritonitic signs MSK: No joint swelling, no redness. Skin: No rashes, petechiae, lesions. Normal color per patient. Neuro: Normal Gait, Grossly intact. Psych: Appropriate for situation. Discharge Exam Constitutional WD/WN, vitals as above Respiratory normal respiratory effort, lungs clear to auscultation Cardiovascular RRR, no murmur, no edema Gastrointestinal (Abdomen) normal bowel sounds, soft, nontender, no hepatosplenomegaly Updated Medication List Medication Instructions Recorded Confirmed Type epinephrine 0.3 mg/0.3 mL 0.3 mg IM ONCE PRN Allergic 01/12/18 12/09/24 History injection, auto-injector (EpiPen) Reaction levothyroxine 150 mcg capsule 150 mcg PO DAILYBB 01/12/18 12/09/24 History cyanocobalamin (vitamin B-12) 1,000 mcg IM .EVERY 3 MONTHS 02/11/23 12/09/24 History 1,000 mcg/mL injection solution galcanezumab-gnlm 120 mg/mL 120 mg subcut MONTHLY 02/11/23 12/09/24 History subcutaneous pen injector (Emgality Pen) lamotrigine 100 mg tablet 100 mg PO AMHS 02/11/23 12/09/24 History ondansetron 8 mg disintegrating 8 mg PO Q8 PRN NAUSEA/VOMITING 02/11/23 12/09/24 History tablet pediatric multivitamin no.136 1 tab PO AMPM 02/11/23 12/09/24 History (Children Multivitamin chewable tablet) buspirone 10 mg tablet 10 mg PO BID PRN Anxiety 12/09/24 12/09/24 History calcium 200 mg (as 2 tab PO TID 12/09/24 12/09/24 History citrate)-vitamin D3 6.25 mcg (250 unit) tablet (Citracal-D3 Petites) lamotrigine 25 mg tablet 25 mg PO AMHS 12/09/24 12/09/24 History lithium carbonate 450 mg 900 mg PO QDD 12/09/24 12/09/24 History tablet,extended release nystatin 100,000 unit/gram topical 1 applic topical BID PRN fungal 12/09/24 12/09/24 History powder rash omeprazole 40 mg capsule,delayed 40 mg PO AMHS 12/09/24 12/09/24 History release prazosin 1 mg capsule 1 mg PO HS 12/09/24 12/09/24 History prazosin 2 mg capsule 2 mg PO HS 12/09/24 12/09/24 History pantoprazole 40 mg tablet,delayed 40 mg PO BID 30 days #60 tabs 12/10/24 Rx release sucralfate 1 gram tablet 1 g PO ACHS 30 days #120 tabs 12/10/24 Rx Hospital Stay Data Consultations 12/09/24 21:43 ED Decision to Admit Stat 12/10/24 00:31 Consult Gastroenterology Routine Procedures Performed Operation Date: 12/10/24 17:00 Actual Procedures p Esophagogastroduodenoscopy - Mele Worthington Case, DO Pending Results Patient Have Any Pending Studies at Discharge: No Discharge Instructions Given to Patient (Per Discharging Provider) You were admitted for concern of peptic ulcer You underwent an EGD which revealed normal esophagus and normal gastric bypass anatomy Please continue your pantoprazole and sucralafate for heart burn symptoms Total Time Total Time Spent Total Time Spent (In Minutes): 45
[2024-12-10] MEDS: POTASSIUM CHLORIDE / WTR 10 MEQ/100 ML PLCT IV SCH (15:56)
[2024-12-10] MEDS: POTASSIUM CHLORIDE CRTAB 20 MEQ TABCR PO STA (16:01)
[2024-12-10] MEDS ORDERED: LITHIUM CARBONATE 450 MG TABCR PO SCH (21:00)
== END 2024-12-10 18:31 | disposition home or self-care (01) ==
LOC: 3N 18:24 → ED 18:24 → SUATTDRO 21:52 → 3N 22:30